=== PATIENT | female | born 1955 | race African-American/Black ===

== ENCOUNTER 2024-10-07 10:29 | Emergency (ER) | payer BC ==
[~2024-10-07] VITALS: Ht 170.2 cm; Wt 95.2 kg
--- NOTE | 2024-10-07 10:35 | ELECTROCARDIOGRAPH REPORT ---
[facility] Test Date: 2024-10-07 Test Time: 10:32:24 Pat Name: LISA PICKETT Department: [facility] Patient ID: [facility]-[id number] Room: Gender: F Diversity Manager: : 1955 Requested By: JUAN RAMON MCGREGOR Order Number: [id number] Reading MD: Measurements Intervals [place] Rate: 84 P: 67 MD: 140 QRS: -47 QRSD: 98 T: 16 QT: 382 QTc: 452 Interpretive Statements Sinus rhythm LAD, consider left anterior fascicular block Low voltage, precordial leads RSR' in V1 or V2, right VCD or RVH Borderline T abnormalities, anterior leads Please click the below link to view image of tracing.
[2024-10-07 10:36] VITALS: TEMP 97.3
[2024-10-07 10:58] LABS: BASOPHILS % (AUTO) 0.6 % (0-1); EOSINOPHILS % (AUTO) 0.9 % (0-6); HEMATOCRIT 41.6 % (35.0-45.0); HEMOGLOBIN 13.9 g/dl (12.0-16.0); LYMPHOCYTES # (AUTO) 2.1 X10'3 (1.1-4.8); LYMPHOCYTES % (AUTO) 41.6 % (21-51); MEAN CORPUSCULAR HEMOGLOBIN 29.3 PG (27.0-31.0); MEAN CORPUSCULAR HGB CONC 33.4 g/dL (33.0-36.5); MEAN CORPUSCULAR VOLUME 87.7 FL (78-98); MEAN PLATELET VOLUME 8.4 FL (7.4-10.4); MONOCYTES # (AUTO) 0.4 X10'3 (0-0.9); MONOCYTES % (AUTO) 8.5 % (2-12); NEUTROPHILS # (AUTO) 2.4 X10'3 (1.8-7.7); NEUTROPHILS % (AUTO) 48.4 % (42-75); PLATELET COUNT 248 X10'3 (140-440); RED BLOOD COUNT 4.74 X10'6 (4.20-5.60); RED CELL DISTRIBUTION WIDTH 14.6 % (11.5-14.5)
--- NOTE | 2024-10-07 11:06 | RADIOLOGY REPORT ---
CHEST RADIOGRAPH Indication: CP Technique: Single frontal view of the chest was obtained Comparison: None FINDINGS: Lines and Tubes: None Lungs: No focal consolidation. Pleura: No effusion. No pneumothorax. Cardiomediastinal contours: Unremarkable Bones: No acute osseous abnormality. IMPRESSION: 1. No acute cardiopulmonary disease.
[2024-10-07 11:20] LABS: ALANINE AMINOTRANSFERASE 21 U/L (12-78); ALBUMIN 3.8 G/DL (3.4-5.0); ALBUMIN/GLOBULIN RATIO 0.8 (1.1-1.5); ALKALINE PHOSPHATASE 92 IU/L (46-116); ANION GAP 8 (8-16); ASPARTATE AMINO TRANSFERASE 15 U/L (10-37); BILIRUBIN,TOTAL 0.6 MG/DL (0.1-1.0); BLOOD UREA NITROGEN 14 MG/DL (7-18); BUN/CREATININE RATIO 15.2 (10.0-20.0); CALCIUM 8.9 MG/DL (8.5-10.1); CHLORIDE 105 MMOL/L (99-107); CREATININE 0.92 MG/DL (0.40-0.90); GLUCOSE 92 MG/DL (70-104); POTASSIUM 4.2 MMOL/L (3.5-5.1); SODIUM 139 MMOL/L (135-145); TOTAL CARBON DIOXIDE 26.2 MMOL/L (24-32); TOTAL PROTEIN 8.6 G/DL (6.4-8.2); eCRCL 55 ML/MIN; eGFR 60 ML/MIN
[2024-10-07 11:27] LABS: PRO BRAIN NATRIURETIC PEPTIDE < 30 PG/ML (0-125)
[2024-10-07] MEDS ORDERED: SPIR25TA5 PO (11:42)
--- NOTE | 2024-10-07 13:35 | Physician Documentation ---
History of Present Illness ~ Chief Complaint: Palpitations Stated Complaint: HEART PALPITATIONS Time Seen by MD: 11:20 Primary Medical Doctor: Risa BEASLEY Patient is seen today with complaints of transient palpitations. Patient denies any chest pain or shortness of breath or lightheadedness or near syncopal episodes during these palpitations. Patient states she does take medications for blood pressure but denies having a supervising broker or frequently being followed her seeing a supervising broker. Patient denies any current palpitations or chest pain or shortness of breath or abdominal pain or nausea, vomiting, diarrhea. Patient states these palpitations this started a few days ago and seemed to come and go. She has no other concern or complaint at this time. Medication Reconciliation Allergies: Coded Allergies: No Known Allergies (Unverified , 10/07/24) Scheduled Spironolactone (Spironolactone), 1 TAB PO DAILY, (Reported) Review of Systems Constitutional: Denies: chills, fever, weakness Eyes: Denies: pain, blurred vision ENT: Denies: ear pain, nose pain, throat pain, mouth pain Respiratory: Denies: cough, shortness of breath Cardiovascular: Denies: chest pain, palpitations Gastrointestinal: Denies: abdominal pain, nausea, vomiting Genitourinary: Denies: burning, dysuria Female Genitalia: Denies: vaginal discharge, pelvic pain Neurological: Denies: headache, dizziness Musculoskeletal: Denies: pain, swelling Integumentary: Denies: rash, lesions Allergic/Immunologic: Denies: hives, itching Hematologic/Lymphatic: Denies: no symptoms reported Psychiatric: Denies: depression, anxiety Physical Exam Vital Signs: Temperature: 97.3, Source: Temporal, Heart Rate: 65, Respiratory Rate: 16, BP: 121/76, Pulse Oximetry: 98, Weight: 95.150 Oxygen Flow Rate: 0 Physical Exam General: Awake and Alert, no acute distress. HEENT: Conjunctiva pink, Sclera clear, Mucus Membranes moist. Neck: Supple without masses and tenderness. Resp: Unlabored. Lungs clear to auscultation bilaterally. Heart: Regular Rate and rhythm, normal S1 and S2 without murmur, rub or gallop. Abdomen: Soft and non tender no organomegaly Extremities: No cyanosis,clubbing or edema. Skin: Warm and Dry. Progress Results/Orders Results/Orders Vital Signs 10/07/24 10/07/24 10/07/24 10:36 11:36 11:36 Temp 97.3 Pulse 92 65 Resp 18 16 B/P (MAP) 151/89 121/76 (91) Pulse Ox 99 98 O2 Flow Rate 0 0 Laboratory Tests Test 10/07/24 10:45 10/07/24 13:16 White Blood Count 5.0 Red Blood Count 4.74 Hemoglobin 13.9 Hematocrit 41.6 Mean Corpuscular Volume 87.7 Mean Corpuscular Hemoglobin 29.3 Mean Corpuscular Hemoglobin Concent 33.4 Red Cell Distribution Width 14.6 H Platelet Count 248 Mean Platelet Volume 8.4 Neutrophils (%) (Auto) 48.4 Lymphocytes (%) (Auto) 41.6 Monocytes (%) (Auto) 8.5 Eosinophils (%) (Auto) 0.9 Basophils (%) (Auto) 0.6 Neutrophils # (Auto) 2.4 Lymphocytes # (Auto) 2.1 Monocytes # (Auto) 0.4 Eosinophils # (Auto) 0.0 Basophils # (Auto) 0.0 CBC Comment Sodium Level 139 Potassium Level 4.2 Chloride Level 105 Carbon Dioxide Level 26.2 Anion Gap 8 Blood Urea Nitrogen 14 Creatinine 0.92 H Estimated GFR/1.73 m2 60 BUN/Creatinine Ratio 15.2 Glucose Level 92 Calcium Level 8.9 Total Bilirubin 0.6 Aspartate Amino Transf (AST/SGOT) 15 Alanine Aminotransferase (ALT/SGPT) 21 Alkaline Phosphatase 92 Troponin I High Sensitivity < 4 L Troponin I High Sens Percent Delta Troponin I Hi Sens Absolute Change Pro-B-Type Natriuretic Peptide < 30 Total Protein 8.6 H Albumin 3.8 Globulin 4.8 H Albumin/Globulin Ratio 0.8 L Chemistry Comments EKG/XRAY/CT/US/VASC/MRI EKG : Additional Comment EKG interpreted by myself today shows regular rate at 84 beats per minute, normal sinus rhythm, no sign of ischemia or ST segment elevation, no axis deviation. Chest X-Ray : Additional Comments Chest x-ray interpreted by myself today shows no large effusion, no large infiltrate, normal mediastinum. DIAGNOSTIC RADIOLOGY Patient: LISA PICKETT Medical Record: [id number] JOSEPH LONDON : 1955, Age: 69 Sex: Female Location: ER Patient Status: [facility] ER Service Date/Time: 10/07/24/ 1031 Ordering Physician: JUAN RAMON MCGREGOR MD Exam: CHEST,SINGLE VIEW CHEST RADIOGRAPH Indication: CP Technique: Single frontal view of the chest was obtained Comparison: None FINDINGS: Lines and Tubes: None Lungs: No focal consolidation. Pleura: No effusion. No pneumothorax. Cardiomediastinal contours: Unremarkable Bones: No acute osseous abnormality. IMPRESSION: 1. No acute cardiopulmonary disease. Electronically Signed by:ALLEN MINOR MD Date & Time: 10/07/24 1104 Dictated by: ALLEN MINOR MD Dictation date and time: 10/07/24 1047 Primary Care Provider: NO PRIMARY CARE PROVIDER cc: JUAN RAMON MCGREGOR MD ~ Heart Score: Heart Score Response (Comments) Value History Slightly Suspicious 0 EKG Normal 0 Age >65 2 Risk Factors 1 or 2 risk factors 1 Troponin Normal limit 0 Total 3 Medical Decision Making Findings Patient is seen today with complaints of transient palpitations. Patient denies any chest pain or shortness of breath or lightheadedness or near syncopal episodes during these palpitations. Patient states she does take medications for blood pressure but denies having a supervising broker or frequently being followed her seeing a supervising broker. Patient denies any current palpitations or chest pain or shortness of breath or abdominal pain or nausea, vomiting, diarrhea. Patient states these palpitations this started a few days ago and seemed to come and go. She has no other concern or complaint at this time. Patient's EKG, chest x-ray, and labs were very reassuring and largely unremarkable. Patient will follow up outpatient with primary care for referral to Cardiology for further eval and treatment and possible Holter monitor testing. Patient will return to ED with any worsening, concerning or changing symptoms. Patient will continue medications as currently prescribed. Departure Disposition: HOME / SELF CARE / HOMELESS Impression: Primary Impression: Palpitations Condition: Improved Discharge Instructions: Palpitations, [id number] Additional Instructions: Patient's EKG, chest x-ray, and labs were very reassuring and largely unremarkable. Patient will follow up outpatient with primary care for referral to Cardiology for further eval and treatment and possible Holter monitor testing. Patient will return to ED with any worsening, concerning or changing symptoms. Patient will continue medications as currently prescribed. Referrals: NO PRIMARY CARE PROVIDER (PCP) Signature Scribe Signature: No scribe Attestation: No scribe JUN SIERRA PAC October 07, 2024 13:35
[2024-10-07 13:52] VITALS: BP 132/83; PULSE 65; RESP 14; O2SAT 98
== END 2024-10-07 13:53 | disposition home or self-care (01) ==
LOC: ER 10:30
DX: R00.2 Palpitations (principal)
CPT/HCPCS: 36415; 71045; 80053; 83880; 84484; 85025; 93005; 99285